=== PATIENT | male | born 1995 | race Caucasian/White ===

== ENCOUNTER 2017-03-07 12:10 | Day surgery (SDC) | payer OTHER ==
[~2017-03-07] VITALS: Ht 188 cm; Wt 61.6 kg
[2017-03-07] MEDS ORDERED: LACTATED RINGERS 1,000 ML IV SCH (12:49)
[2017-03-07] MEDS ORDERED: OXYC-302 PO (12:51)
[2017-03-07 13:09] VITALS: BP 137/87
[2017-03-07] MEDS ORDERED: FENTANYL PF 100 MCG/2ML ONE ×2 (16:22→18:02)
[2017-03-07] MEDS ORDERED: MIDAZOLAM 1 MG/ML, 2ML ONE (16:22)
[2017-03-07] MEDS ORDERED: BUPIVACAINE/PF 0.5% ONE (16:37)
[2017-03-07] MEDS ORDERED: EPINEPHRINE 1 MG/ML, 1ML ONE (16:37)
[2017-03-07] MEDS ORDERED: CEFAZOLIN 1,000 MG ONE (16:49)
[2017-03-07] MEDS ORDERED: PROPOFOL 10 MG/ML, 20ML ONE (16:49)
[2017-03-07] MEDS ORDERED: ONDANSETRON 2MG/ML, 2ML ONE (16:49)
[2017-03-07] MEDS ORDERED: DEXAMETHASONE 4 MG/ML, 1ML ONE (16:49)
[2017-03-07] MEDS ORDERED: BUPIVACAINE/PF-EPI 0.5% 1:200K IM ONE (17:10)
[2017-03-07] MEDS ORDERED: MEPERIDINE/PF 25MG/0.5ML IVPush PRN (17:30)
[2017-03-07] MEDS ORDERED: PROMETHAZINE 25 MG/ML, 1ML IV PRN (17:30)
[2017-03-07] MEDS ORDERED: ACETAMINOPHEN 325 MG TABLET PO PRN (17:30)
[2017-03-07] MEDS ORDERED: KETOROLAC 30 MG/1 ML IV PRN (17:30)
[2017-03-07] MEDS ORDERED: DIAZEPAM 5 MG/ML, 2ML IVPush PRN (17:30)
[2017-03-07] MEDS ORDERED: ALBUTEROL SULFATE 2.5 MG/3 ML NPPB PRN (17:30)
[2017-03-07] MEDS ORDERED: BACITRACIN 50,000 UNIT ONE (17:32)
[2017-03-07] MEDS ORDERED: BACITRACIN 50,000 UNIT IM ONE (17:35)
[2017-03-07] MEDS ORDERED: MEPERIDINE/PF 50 MG/ML ONE (17:54)
[2017-03-07] MEDS ORDERED: ACETAMINOPHEN 650 MG/20.3 ML UDC ONE (18:01)
[2017-03-07] MEDS ORDERED: OXYcodone 5 MG/5 ML ORAL.SOL UDC ONE ×2 (18:02→18:24)
[2017-03-07] MEDS ORDERED: KETOROLAC 30 MG/1 ML ONE (18:02)
[2017-03-07] MEDS: FENTANYL PF 100 MCG/2ML IV PRN ×2 (18:03→18:08)
[2017-03-07] MEDS: OXYcodone 5 MG/5 ML ORAL.SOL UDC PO PRN ×2 (18:06→18:25)
[2017-03-07] MEDS ORDERED: HYDROmorphone 2 MG/ML, 1ML ONE (18:13)
[2017-03-07] MEDS: HYDROmorphone 1 MG/ML, 1ML IV PRN ×3 (18:14→18:37)
== END 2017-03-07 21:51 ==
LOC: OUT 12:10 → 4NOR 19:49 → OUT 21:51
PROVIDERS: ATTEND Orthopaedic Surgery
DX: S62.322A Displaced fracture of shaft of third metacarpal bone, right hand, initial encounter for closed fracture (principal); S62.324A Displaced fracture of shaft of fourth metacarpal bone, right hand, initial encounter for closed fracture; W34.09XA Accidental discharge from other specified firearms, initial encounter; Y93.89 Activity, other specified; Y92.89 Other specified places as the place of occurrence of the external cause; Y99.8 Other external cause status
CPT/HCPCS: 26615; 73130; 76000; J0171; J0690; J1100; J1170; J1885; J2175; J2250; J2405; J2704; J3010; J3490; J7120

== ENCOUNTER 2018-01-27 10:27 | Emergency (ER) | payer OTHER ==
[~2018-01-27] VITALS: Ht 188 cm; Wt 67.8 kg
[~2018-01-27 10:27] MED LIST: OXYC-302 PO
[2018-01-27 10:33] VITALS: BP 122/79
== END 2018-01-27 12:02 | disposition home or self-care (01) ==
LOC: ED 11:50
DX: S60.221A Contusion of right hand, initial encounter (principal); W18.30XA Fall on same level, unspecified, initial encounter; Y93.79 Activity, other specified sports and athletics; Y92.828 Other wilderness area as the place of occurrence of the external cause; Y99.8 Other external cause status
CPT/HCPCS: 29125; 99284

== ENCOUNTER 2018-03-18 15:54 | Emergency (ER) | payer OTHER ==
[~2018-03-18] VITALS: Ht 188 cm; Wt 68.0 kg
[2018-03-18 16:38] VITALS: BP 129/75
== END 2018-03-18 17:01 | disposition home or self-care (01) ==
LOC: ED 16:50
DX: B35.1 Tinea unguium (principal); F17.200 Nicotine dependence, unspecified, uncomplicated
CPT/HCPCS: 99281

== ENCOUNTER 2018-07-22 05:42 | Day surgery (SDC) | payer OTHER ==
[~2018-07-22] VITALS: Ht 188 cm; Wt 62.0 kg
[~2018-07-22 05:42] MED LIST changes: +ACET-1600 PO
[2018-07-22] MEDS ORDERED: LACTATED RINGERS 1,000 ML IV SCH (06:34)
[2018-07-22 06:36] VITALS: BP 112/72
[2018-07-22] MEDS ORDERED: BUPIVACAINE/PF-EPI 0.5% 1:200K ONE (06:52)
[2018-07-22] MEDS ORDERED: LIDOCAINE-MPF 1%, 2ML INFIL ONE (07:00)
[2018-07-22] MEDS ORDERED: DEXAMETHASONE 4 MG/ML, 1ML ONE (07:18)
[2018-07-22] MEDS ORDERED: ONDANSETRON 2MG/ML, 2ML ONE (07:18)
[2018-07-22] MEDS ORDERED: GLYCOPYRROLATE 0.2MG/1ML, 5ML ONE (07:18)
[2018-07-22] MEDS ORDERED: FENTANYL PF 100 MCG/2ML ONE (07:18)
[2018-07-22] MEDS ORDERED: PROPOFOL 10 MG/ML, 20ML ONE (07:18)
[2018-07-22] MEDS ORDERED: NEOSTIGMINE 1 MG/ML, 10ML ONE (07:18)
[2018-07-22] MEDS ORDERED: SUCCINYLCHOLINE 20 MG/ML, 10ML ONE (07:18)
[2018-07-22] MEDS ORDERED: ROCURONIUM 10MG/ML,5ML ONE (07:18)
[2018-07-22] MEDS ORDERED: CEFAZOLIN 1,000 MG ONE (07:18)
[2018-07-22] MEDS ORDERED: KETOROLAC 30 MG/1 ML ONE (07:25)
[2018-07-22] MEDS ORDERED: DIPHENHYDRAMINE 50 MG/ML, 1ML IVPush PRN (07:30)
[2018-07-22] MEDS ORDERED: MEPERIDINE/PF 25MG/0.5ML IVPush PRN (07:30)
[2018-07-22] MEDS ORDERED: HYDROmorphone 2 MG/ML, 1ML IVPush PRN (07:30)
[2018-07-22] MEDS ORDERED: METOPROLOL 1 MG/ML, 5ML IV PRN (07:30)
[2018-07-22] MEDS ORDERED: PROCHLORPERAZINE 5 MG/ML, 2ML IV PRN (07:30)
[2018-07-22] MEDS ORDERED: OXYcodone 5 MG/5 ML ORAL.SOL UDC PO PRN (07:30)
[2018-07-22] MEDS ORDERED: FENTANYL PF 100 MCG/2ML IV PRN (07:30)
[2018-07-22] MEDS ORDERED: PROMETHAZINE 25 MG/ML, 1ML IV PRN (07:30)
[2018-07-22] MEDS ORDERED: HALOPERIDOL 5 MG/ML IV PRN (07:30)
[2018-07-22] MEDS ORDERED: LABETALOL 5MG/ML, 20ML IV PRN (07:30)
[2018-07-22] MEDS ORDERED: hydrALAzine 20 MG/ML, 1ML IV PRN (07:30)
[2018-07-22] MEDS ORDERED: BUPIVACAINE/PF-EPI 0.5% 1:200K INFIL ONE (07:45)
== END 2018-07-22 10:00 | disposition home or self-care (01) ==
LOC: OUT 05:42
PROVIDERS: ATTEND Orthopaedic Surgery
DX: Z47.2 Encounter for removal of internal fixation device (principal); Z88.5 Allergy status to narcotic agent
CPT/HCPCS: 20680; 73120; 76000; J0330; J0690; J1100; J1885; J2405; J2704; J2710; J3010; J7120